=== PATIENT | female | born 1960 | race Caucasian/White ===

== ENCOUNTER 2017-07-02 15:30 | Outpatient (RCR) | payer BC | END 2017-09-16 | LOC: MKS.ESL.PT | DX: G20 Parkinson's disease (principal); R26.89 Other abnormalities of gait and mobility ==

== ENCOUNTER 2020-03-02 02:46 | Inpatient (IN) | payer MEDICARE ==
[~2020-03-02] VITALS: Ht 160 cm; Wt 97.6 kg
[2020-03-02] VITALS (346 sets, daily range): BP systolic 90–135; BP diastolic 54–109; PULSE 103–129; TEMP 97.5–99.2; O2SAT 82–100
--- NOTE | 2020-03-02 03:30 | NUR ---
patient arrived via EMS on a stretcher from [facility]. report had not been given at this time by the RN from [facility]. Patient is on room air, in no acute distress, vitals stable. Provider, Katty VIRK, at bedside. Patient has IVF's running and a braun that was placed at OSH. Waiting for orders and will CTM patient.
[2020-03-02] MEDS ORDERED: WELLBUTRIN XL300 M1 PO (03:42)
[2020-03-02] MEDS ORDERED: REQUIP XL8 MG PO (03:42)
[2020-03-02] MEDS ORDERED: PROTONIX 40MG T40 MG PO (03:43)
[2020-03-02] MEDS ORDERED: SYNTHROID0.05 MG/TA PO (03:43)
[2020-03-02] MEDS ORDERED: VITAMIND3 5000 PO (03:44)
[2020-03-02] MEDS ORDERED: ABILIFY20 MG PO (03:44)
[2020-03-02] MEDS ORDERED: PROZAC40 MG PO (03:45)
[2020-03-02] MEDS ORDERED: XANAX 0.5MG0.5 MG PO (03:45)
[2020-03-02 04:13] LABS: HEMOGLOBIN 7.2 g/dl (12.5-16.0)
--- NOTE | 2020-03-02 04:27 | NUR ---
Called [facility] and spoke to the nurse who took care of patient. Recieved a good report and reminded nurse that in the future report needs to be given to us before the patient leaves their facility. She said she called six times and I told her I was in an isolation room doing a sterile dressing change and she could have waited and that it is unacceptable and not safe practice to just send a patient without giving someone report first. That was the end of our conversation.
[2020-03-02 04:37] LABS: CALCIUM 7.8 mg/dL (8.4-10.2); CREATININE, serum 1.05 (0.52-1.25); POTASSIUM 4.5 mmol/L (3.4-5.0)
[2020-03-02 06:08] LABS: TRICYCLIC ANTIDEPRESS URINE NEGATIVE
--- NOTE | 2020-03-02 06:40 | NUR ---
Spoke to patients daughter, Chastity. She had some questions so she was updated on her mothers plan of care. I told her she will be updated as soon as we know more.
--- NOTE | 2020-03-02 06:51 | NUR ---
returned my call regarding the GI consult on the patient. He was updated about the patients status and he told me that either him or will be by later to scope the patient and will call us back with a time.
--- NOTE | 2020-03-02 09:35 | NUR ---
CARLA met with the patient to discuss discharge plan. The patient lives in [place] with her (Ryne, ph#[phone]), daughter (Chastity [place]rieta, ph#[phone]) and Chastity's three children. She reports independence with ADLs and does not have any DME. The patient's PCP is Dr. Mynor Brothers and she receives her medications at [facility]. She reports occasional difficulties affording her meds. The patient does not have advanced directives in EMR, but she reports that she does have them completed and at home. She states that her is her DPOA-HC. The patient plans to return home with her family upon discharge. SW contacted and updated the patient's . The patient's confirmed the above information. He had no other questions or concerns for SW at this time. The patient had a positive UDS for amphetamines/methamphetamines. CARLA discussed this with the patient. 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 She reports that she uses the meth in her home. She states that the children are not home when she uses it. She states that on scale from 1-10, that she is at a 10 on wanting to quit. CARLA discussed NA meetings and outpatient treatment. The patient was not interested in either. She states that she has no problems quitting. CARLA made a CPS report. Intake ID#[id number]. The patient was currently on 2 liters of oxygen. SW to continue to monitor.
--- NOTE | 2020-03-02 11:00 | NUR ---
Pt has returned to unit from Endoscopy procedure. Pt ambulated with 1 assist, steady gait from cart to bed. Physical Therapy in room with pt now for mobility evaluation. Alberts draining clear yellow urine, yet pt complaining of need to urinate and requsting removal of catheter Pt orientedx4, Juan Carlos=10, VSS on room air, no pain other than aforementioned Call light in reach after Physical Therapy evaluation Pt tolerating clear liquids without N/V
--- NOTE | 2020-03-02 13:22 | NUR ---
Lab called regarding continued pending CBC - first tectonophysicist unable to obtain blood sample, different tectonophysicist to be dispatched now
[2020-03-02 14:04] LABS: MEAN CELL VOLUME 81 fl (80.0-100.0); MEAN CORPUSCULAR HGB CONC 30 g/dl (33.0-37.0); MEAN PLATELET VOLUME 11.1 fl (7.4-10.4); PLATELET COUNT 336 K/mm3 (130-400); RED BLOOD COUNT 3.07 M/mm3 (4.10-5.30); REDCELL DISTRIBUTION WIDTH-CV 18.2 % (11.5-14.5)
[2020-03-02 14:07] LABS: HEMATOCRIT 24.8 % (37.0-47.0); HEMOGLOBIN 7.5 g/dl (12.5-16.0); MEAN CORPUSCULAR HEMOGLOBIN 24 pg (27.0-31.0)
[2020-03-02 14:54] LABS: ANISOCYTOSIS 3+; EOSINOPHIL 1 % (0-4); LYMPHOCYTE 25 % (20.0-51.0); MYELOCYTE 1 % (0-0); NEUTROPHILS 69 % (42.0-75.2); PLATELET ESTIMATE NORMAL (NORMAL)
[2020-03-02 14:55] LABS: HYPOCHROMIA 2+; OVALOCYTES 1+; POIKILOCYTOSIS 1+
--- NOTE | 2020-03-02 15:00 | NUR ---
Daughter Chastity called in for update. Update given and informed if H&H improved, MD Gricelda thinking of discharging pt home. Pt does state she has extensive support team made up of:, daughter and mother... but would feel more comfortable staying one more night since "she passed out and her blood pressure was so low last night". Daughter in agreement and asking if pt can stay tonight. MD Gricelda informed and OK with 1 more evening d/t mild orthostatic dizzyness, continued tachycardia and hemoglobin<8
--- NOTE | 2020-03-02 17:50 | NUR ---
Pt arrives to medical unit rm [id number] from ICU via WC accompanied by MAME Espinal. Pt ambulates with steady gait from WC to chair, denies pain or needs at this time, requesting shower later before bedtime. POC reviewed with pt. Water and sprite provided. Call light in reach.
--- NOTE | 2020-03-02 18:55 | NUR ---
Pt report received from Jocelynn VILCHIS at bedside. Pt is resting in bed peacefully watching tv with no complaints at this time. Call light is at her side. Will continue to monitor.
--- NOTE | 2020-03-02 21:24 | NUR ---
This underwriter solicitation director was approached from RT asking if Pt has been in the 80's for SP02 this shift. This underwriter solicitation director double checked VS rpeort which shows PT O2>90% on RA this shift. This underwriter solicitation director double checked Pt SP02 and is noted to be 88%-91%% RA. RT states that they are putting Pt on 2l 02 per NC for NOC. soldering technician also reported that Pt H&H recheck was unable to be completed due to inability to obtain blood return. Pt has NS running iv at 125ml/hr and bottle label inspector states he will re-attempt during the NOC. Will continue to monitor.
--- NOTE | 2020-03-02 23:28 | NUR ---
Pt was a difficult stick for laborer prestressed concrete and so this investment underwriter assisted by holding Pt's right hand and keeping skin tight. Lab was successfully obtained on first stick. Will continue to monitor.
[2020-03-02 23:51] LABS: HEMATOCRIT 21.3 % (37.0-47.0); HEMOGLOBIN 6.6 g/dl (12.5-16.0)
[2020-03-03] VITALS (20 sets, daily range): BP systolic 92–113; BP diastolic 44–69; PULSE 91–106; TEMP 98–99.8
--- NOTE | 2020-03-03 03:36 | NUR ---
Pt has had blood transfusing without complications since 129. Pt is tolerating transfusion well with no s/s of adverse reactions reported or noted. Call light is within reach and Pt is noted to be resting with eyes closed and breathing in a regular rate and pattern at times. Will continue to monitor.
--- NOTE | 2020-03-03 04:26 | NUR ---
After disconnecting blood tubing from Pt and making rounds this telegraphic typewriter operator was approached from TUCK POINTER HELPER stating that Pt was "covered with blood". This telegraphic typewriter operator assess Pt and notices that her right AC IV is no longer inserted into Pt's AC. Right AC IV discontinued.
[2020-03-03 04:35] LABS: COLLECTION METHOD CLEAN CATCH
[2020-03-03 05:07] LABS: PH 6 (5-8); SQUAMOUS EPITHELIAL 0-2 /hpf; URINE APPEARANCE Clear; URINE BACTERIA None Seen /hpf; URINE BILIRUBIN Negative (NEGATIVE); URINE BLOOD Negative (NEGATIVE); URINE COLOR Yellow; URINE GLUCOSE Negative (NEGATIVE); URINE KETONE Negative (NEGATIVE); URINE LEUKOCYTE ESTERASE 1+ (NEGATIVE); URINE NITRATE Negative (NEGATIVE); URINE PROTEIN(semi-quant) Negative (NEGATIVE); URINE RBC 0-2 /hpf; URINE UROBILINOGEN Negative (NEGATIVE)
--- NOTE | 2020-03-03 06:04 | NUR ---
Pt is noted to be resting in bed with eyes closed when laborer plumbing enters room and is easily aroused. Pt remains in stable condition at this time with no s/s of distress noted. Call light is within reach. Will continue to monitor.
[2020-03-03 07:12] LABS: BASO # 0.1 (0.0-0.2); BASO % 0.5 % (0.0-2.0); EOS # 0.1 (0.0-0.7); EOS % 1.4 % (0-4.0); GRAN # 4.9 (1.4-6.5); GRAN % 51.4 % (42.2-75.2); LYMPH # 3.8 (1.2-3.4); LYMPH % 39.9 % (20.0-51.0); MEAN CELL VOLUME 82 fl (80.0-100.0); MEAN CORPUSCULAR HGB CONC 31 g/dl (33.0-37.0); MEAN PLATELET VOLUME 11.3 fl (7.4-10.4); MONO # 0.6 (0.1-0.6); RED BLOOD COUNT 2.69 M/mm3 (4.10-5.30); REDCELL DISTRIBUTION WIDTH-CV 18.1 % (11.5-14.5)
[2020-03-03 07:22] LABS: HEMATOCRIT 22.1 % (37.0-47.0); HEMOGLOBIN 6.8 g/dl (12.5-16.0); MEAN CORPUSCULAR HEMOGLOBIN 25 pg (27.0-31.0); PLATELET COUNT 234 K/mm3 (130-400)
--- NOTE | 2020-03-03 08:44 | NUR ---
TRINI NOTE: PT AOX4. DENIES PAIN, CP, SOB, N/V, VERTIGO. STEADY INDEPENDENT GAIT. TOLERATING BREAKFAST. HGB 6.[address] GALO NOTIFIED. REPORTS DIARRHEA OVERNIGHT THUS MIRALAX NOT GIVEN THIS AM. DENIES ABD CRAMPING
--- NOTE | 2020-03-03 14:48 | NUR ---
BLOOD TRANSFUSION COMPLETE @ 1440. ORDER FOR H&H RECHECK POST 4HRS @ 1840 PER CONVERSATION WITH PA. PT DENIES ANY REACTION SYMPTOMS.
--- NOTE | 2020-03-03 20:09 | NUR ---
At time of assessment, patient is resting in bed. She states she has felt very tired today. She is currently on 1 L O2, no shortness of breath at rest, lung sounds are clear, heart sounds are regular and normal. No edema or pain is present. She is alert and oriented. Will continue to monitor.
[2020-03-03 21:26] LABS: HEMATOCRIT 25.2 % (37.0-47.0); HEMOGLOBIN 7.9 g/dl (12.5-16.0)
--- NOTE | 2020-03-04 01:10 | NUR ---
At this time, patient complains of nausea. Dr. Jade is notified and initiates Zofran 4mg Q6 PRN. Patient is not experiencing any other symptoms. Zofran administered and will continue to monitor.
[2020-03-04 04:35] VITALS: BP 89/52; PULSE 92; TEMP 99
--- NOTE | 2020-03-04 05:23 | NUR ---
Patient has slept for most of the night. She did wake up once around 0130 complaining of nausea, which Zofran was administered for. Otherwise, she has had an uneventful night. She still wears oxygen at 1 liter and is tolerating well. She has not complained of any pain. Will continue to monitor.
[2020-03-04 06:18] LABS: BASO % 0.3 % (0.0-2.0); EOS # 0.1 (0.0-0.7); EOS % 1.6 % (0-4.0); GRAN # 4.5 (1.4-6.5); GRAN % 56.4 % (42.2-75.2); LYMPH # 2.7 (1.2-3.4); LYMPH % 33.9 % (20.0-51.0); MEAN CELL VOLUME 81 fl (80.0-100.0); MEAN CORPUSCULAR HGB CONC 32 g/dl (33.0-37.0); MEAN PLATELET VOLUME 10.6 fl (7.4-10.4); MONO # 0.5 (0.1-0.6); MONO % 6.8 % (1.7-9.3); PLATELET COUNT 210 K/mm3 (130-400); REDCELL DISTRIBUTION WIDTH-CV 18.3 % (11.5-14.5)
[2020-03-04 06:24] LABS: HEMATOCRIT 24.3 % (37.0-47.0); HEMOGLOBIN 7.7 g/dl (12.5-16.0); MEAN CORPUSCULAR HEMOGLOBIN 26 pg (27.0-31.0)
[2020-03-04 06:28] LABS: CALCIUM 7.8 mg/dL (8.4-10.2); CREATININE, serum 0.95 (0.52-1.25); POTASSIUM 3.8 mmol/L (3.4-5.0)
--- NOTE | 2020-03-04 08:01 | NUR ---
Rcvd report from MAME Whiteside. Pt is awake and up to the restroom upon entering for bedside report. Pt does have and open wound to the lower abdomen that is beginning to drain yellow fluid. Placed nonadherent pad over and covered with tape d/t pt wearing brief and rubbing of that area. Pt is A&O, independent in the room. Has no c/o pain or discomfort at this time. Assessment completed, no further concerns at this time. Call light within reach.
[2020-03-04 08:05] VITALS: BP 96/48; PULSE 100; TEMP 99.2
[2020-03-04] MEDS ORDERED: BIAXIN 500MG T500 MG PO (09:59)
[2020-03-04] MEDS ORDERED: PROTONIX 40MG T40 MG PO (09:59)
[2020-03-04] MEDS ORDERED: AMOXICILLIN 50500 MG PO (09:59)
[2020-03-04] MEDS ORDERED: FERRO-TIME325 MG PO (09:59)
--- NOTE | 2020-03-04 17:55 | NUR ---
PT DISCHARGED FROM HOSPITAL AT 1220 WITH ANTIBIOTICS FOR THIS EVENING PERMISSION GIVEN FROM SHAMIKA HAMILTON. PT ESCORTED OUT BY THIS RN.
== END 2020-03-04 12:20 | disposition home or self-care (01) | DRG 378 ==
LOC: IMCU 02:46 → ICU 04:04 → MEDICAL 18:15 → ICU 18:15 → MEDICAL 03-04 12:20
PROVIDERS: Internal Medicine; Internal Medicine Gastroenterology; Nurse Practitioner Family; Physician Assistant; ADMIT Student in an Organized Health Care Education/Training Program
PROC: 0DB68ZX Excision of Stomach, Via Natural or Artificial Opening Endoscopic, Diagnostic (ICD-10-PCS; 2020-03-02)
PROC: 0DB98ZX Excision of Duodenum, Via Natural or Artificial Opening Endoscopic, Diagnostic (ICD-10-PCS; principal; 2020-03-02 10:00)
DX: K25.4 Chronic or unspecified gastric ulcer with hemorrhage (principal); R65.10 Systemic inflammatory response syndrome (SIRS) of non-infectious origin without acute organ dysfunction; E87.2 Acidosis; T81.89XA Other complications of procedures, not elsewhere classified, initial encounter; D50.0 Iron deficiency anemia secondary to blood loss (chronic); G20 Parkinson's disease; E03.9 Hypothyroidism, unspecified; F41.8 Other specified anxiety disorders; K21.9 Gastro-esophageal reflux disease without esophagitis; F15.90 Other stimulant use, unspecified, uncomplicated; K44.9 Diaphragmatic hernia without obstruction or gangrene; E07.9 Disorder of thyroid, unspecified; B96.81 Helicobacter pylori [H. pylori] as the cause of diseases classified elsewhere
CPT/HCPCS: 99223-AI; 99239; C9113; J2250; J2370; J2405; J2704; J7030; P9016

== ENCOUNTER 2020-04-14 20:52 | Inpatient (IN) | payer MEDICARE ==
[2020-04-14] VITALS (16 sets, daily range): BP systolic 112; BP diastolic 64; O2SAT 95–96
[~2020-04-14] VITALS: Ht 160 cm; Wt 98.7 kg
[~2020-04-14 20:52] MED LIST: ABILIFY20 MG PO; AMOXICILLIN 50500 MG PO; BIAXIN 500MG T500 MG PO; FERRO-TIME325 MG PO; PROTONIX 40MG T40 MG PO; PROZAC40 MG PO; REQUIP XL8 MG PO; SYNTHROID0.05 MG/TA PO; VITAMIND3 5000 PO; WELLBUTRIN XL300 M1 PO; XANAX 1MG1 MG PO
[2020-04-14 22:25] LABS: MEAN CELL VOLUME 83 fl (80.0-100.0); MEAN CORPUSCULAR HGB CONC 29 g/dl (33.0-37.0); MEAN PLATELET VOLUME 10.8 fl (7.4-10.4); PLATELET COUNT 532 K/mm3 (130-400); REDCELL DISTRIBUTION WIDTH-CV 17.1 % (11.5-14.5)
[2020-04-14 22:29] LABS: HEMATOCRIT 23.2 % (37.0-47.0); HEMOGLOBIN 6.7 g/dl (12.5-16.0); MEAN CORPUSCULAR HEMOGLOBIN 24 pg (27.0-31.0)
[2020-04-14 22:36] LABS: CALCIUM 7.6 mg/dL (8.4-10.2); CREATININE, serum 1.1 (0.52-1.25)
[2020-04-14 23:45] LABS: ANISOCYTOSIS 1+; HYPOCHROMIA 1+; LYMPHOCYTE 13 % (20.0-51.0); NEUTROPHILS 84 % (42.0-75.2); PLATELET ESTIMATE INCREASED (NORMAL)
[2020-04-15] VITALS (893 sets, daily range): BP systolic 91–122; BP diastolic 41–91; PULSE 92–132; TEMP 97.7–99.2; O2SAT 68–100
[2020-04-15 01:13] LABS: MUCOUS Present /lpf; PH 5 (5-8); SQUAMOUS EPITHELIAL 0-2 /hpf; URINE APPEARANCE Clear; URINE BACTERIA None Seen /hpf; URINE BILIRUBIN Negative (NEGATIVE); URINE BLOOD Negative (NEGATIVE); URINE COLOR Straw; URINE GLUCOSE Negative (NEGATIVE); URINE KETONE Negative (NEGATIVE); URINE LEUKOCYTE ESTERASE Negative (NEGATIVE); URINE NITRATE Negative (NEGATIVE); URINE PROTEIN(semi-quant) Negative (NEGATIVE); URINE RBC None Seen /hpf; URINE UROBILINOGEN Negative (NEGATIVE)
[2020-04-15 01:16] LABS: COLLECTION METHOD CLEAN CATCH
[2020-04-15 01:18] LABS: TRICYCLIC ANTIDEPRESS URINE NEGATIVE
--- NOTE | 2020-04-15 07:00 | NUR ---
Pt report provided to Linsey VILCHIS. Pt resting in bed at this time. Assessment completed with oncoming nurse about abdominal wounds.
[2020-04-15 07:28] LABS: MEAN CELL VOLUME 84 fl (80.0-100.0); MEAN CORPUSCULAR HGB CONC 32 g/dl (33.0-37.0); MEAN PLATELET VOLUME 10.7 fl (7.4-10.4); PLATELET COUNT 446 K/mm3 (130-400); RED BLOOD COUNT 2.67 M/mm3 (4.10-5.30); REDCELL DISTRIBUTION WIDTH-CV 18.6 % (11.5-14.5)
[2020-04-15 07:30] LABS: HEMATOCRIT 22.3 % (37.0-47.0); HEMOGLOBIN 7.1 g/dl (12.5-16.0); MEAN CORPUSCULAR HEMOGLOBIN 27 pg (27.0-31.0)
[2020-04-15 07:31] LABS: CALCIUM 7.3 mg/dL (8.4-10.2); CREATININE, serum 1.02 (0.52-1.25); POTASSIUM 4.1 mmol/L (3.4-5.0)
--- NOTE | 2020-04-15 08:10 | NUR ---
Pt assessment complete. Pt is laying in bed sleeping upon entry, she arouses to voice. Pt currently denies any pain. She reports that she has some dizziness and SOB with exertion, but improved from admission. Pt has no N/V at this time. IVF infusing without complications. POC discussed with patient who verbalizes understanding. Denies any needs at this time. Call light within reach. Will continue to monitor.
[2020-04-15 09:22] LABS: BAND 6 % (0-10); BASOPHIL 1 % (0-2); EOSINOPHIL 1 % (0-4); MYELOCYTE 2 % (0-0); NEUTROPHILS 66 % (42.0-75.2)
[2020-04-15 09:27] LABS: LYMPHOCYTE 20 % (20.0-51.0)
[2020-04-15 09:30] LABS: ANISOCYTOSIS 1+; HYPOCHROMIA 1+; OVALOCYTES 1+; PLATELET ESTIMATE INCREASED (NORMAL)
--- NOTE | 2020-04-15 17:55 | NUR ---
Pt moved to room 329 at this time.
[2020-04-15 19:16] LABS: HEMATOCRIT 19.4 % (37.0-47.0); HEMOGLOBIN 6.1 g/dl (12.5-16.0)
--- NOTE | 2020-04-15 22:35 | NUR ---
ONE UNIT PRBCs STARTED FOR A HGB OF 6.1.
--- NOTE | 2020-04-15 22:45 | NUR ---
NO ADVERSE EFFECTS NOTED AFTER STARTING BLOOD TRANSFUSION.
[2020-04-16] VITALS (12 sets, daily range): BP systolic 90–135; BP diastolic 45–77; PULSE 63–108; TEMP 97.8–98.5
--- NOTE | 2020-04-16 00:30 | NUR ---
BLOOD TRANSFUSION COMPLETE WITH NO ADVERSE EFFECTS.
[2020-04-16 01:59] LABS: HEMATOCRIT 21.2 % (37.0-47.0); HEMOGLOBIN 6.6 g/dl (12.5-16.0)
--- NOTE | 2020-04-16 02:25 | NUR ---
F/U HGB AFTER BLOOD TRANSFUSION WAS 6.6. ANOTHER UNIT ORDERED BY HOSPITALIST [place]
--- NOTE | 2020-04-16 03:45 | NUR ---
2nd UNIT PRBCs STARTED. NO ADVERSE EFFECTS NOTED. CONT. TO MONITOR.
--- NOTE | 2020-04-16 04:00 | NUR ---
TRANSFUSION CONTINUES WITHOUT PROBLEM. CONT. TO MONITOR.
--- NOTE | 2020-04-16 05:10 | NUR ---
TRANSFUSION COMPLETE. NO ADVERSE EFFECTS. CBC ORDERED FOR THIS A.M.
--- NOTE | 2020-04-16 08:00 | NUR ---
Assessment complete. Patient A&Ox4. Denies pain and discomfort. VSS. IV CDI, fluids infusing. Patient states that she feels better after getting her blood transfusion. Patient is steady on her feet. Nurse instructed patient to call for assistance with ambulation. Patient verbalized an understanding. No further needs expressed from patient. Contact precations in place. Call light within reach
[2020-04-16 08:04] LABS: MEAN CELL VOLUME 86 fl (80.0-100.0); MEAN CORPUSCULAR HGB CONC 31 g/dl (33.0-37.0); MEAN PLATELET VOLUME 10.5 fl (7.4-10.4); RED BLOOD COUNT 2.77 M/mm3 (4.10-5.30); REDCELL DISTRIBUTION WIDTH-CV 17.7 % (11.5-14.5)
[2020-04-16 08:18] LABS: CALCIUM 7.6 mg/dL (8.4-10.2); CREATININE, serum 1.02 (0.52-1.25); MAGNESIUM 1.9 mg/dL (1.6-2.3); POTASSIUM 3.9 mmol/L (3.4-5.0)
[2020-04-16 08:23] LABS: HEMATOCRIT 23.9 % (37.0-47.0); HEMOGLOBIN 7.4 g/dl (12.5-16.0); MEAN CORPUSCULAR HEMOGLOBIN 27 pg (27.0-31.0); PLATELET COUNT 281 K/mm3 (130-400)
[2020-04-16 09:52] LABS: BAND 2 % (0-10); EOSINOPHIL 3 % (0-4); LYMPHOCYTE 33 % (20.0-51.0); NEUTROPHILS 59 % (42.0-75.2); NUCLEATED RED BLOOD CELL 1 (0-6); PLATELET ESTIMATE NORMAL (NORMAL)
[2020-04-16 09:53] LABS: ANISOCYTOSIS 2+; HYPOCHROMIA 2+; POLYCHROMASIA 1+
[2020-04-16 16:26] LABS: HEMOGLOBIN 7.8 g/dl (12.5-16.0)
--- NOTE | 2020-04-16 17:54 | NUR ---
Patient has been resting in bed most of the shift. Has felt better after blood transfusions from second shift supervisor. VSS. A&Ox3.IV CDI. Hgb stable. No further needs expressed from patient. Call light within reach
[2020-04-17 01:11] VITALS: BP 79/48; PULSE 85; TEMP 98.2
[2020-04-17 04:06] VITALS: BP 120/53; PULSE 86; TEMP 98.6
--- NOTE | 2020-04-17 06:10 | NUR ---
Patient rested well overnight. Patient remains alert and oriented while awake, rouses easily. Patient denies pain or needs, call light within reach.
[2020-04-17 07:08] LABS: MEAN CELL VOLUME 87 fl (80.0-100.0); MEAN CORPUSCULAR HGB CONC 31 g/dl (33.0-37.0); MEAN PLATELET VOLUME 10.7 fl (7.4-10.4); PLATELET COUNT 281 K/mm3 (130-400); RED BLOOD COUNT 2.77 M/mm3 (4.10-5.30); REDCELL DISTRIBUTION WIDTH-CV 18.5 % (11.5-14.5)
[2020-04-17 07:17] LABS: POTASSIUM 3.8 mmol/L (3.4-5.0)
[2020-04-17 07:28] LABS: HEMATOCRIT 24.2 % (37.0-47.0); HEMOGLOBIN 7.4 g/dl (12.5-16.0); MEAN CORPUSCULAR HEMOGLOBIN 27 pg (27.0-31.0)
[2020-04-17 08:16] LABS: BAND 2 % (0-10); LYMPHOCYTE 39 % (20.0-51.0); NEUTROPHILS 56 % (42.0-75.2)
[2020-04-17 08:17] LABS: ANISOCYTOSIS 1+; PLATELET ESTIMATE NORMAL (NORMAL)
[2020-04-17 08:20] VITALS: BP 98/50; PULSE 87; TEMP 98.4
[2020-04-17 08:39] LABS: PATHOLOGY DIFF REVIEW OK +
--- NOTE | 2020-04-17 09:30 | NUR ---
Patient has been doing well today. She stated she is feeling very tired today. Her HBG is still low today. Patient is aware. Patient denies pain and nausea. Offered to help her in the shower, she wanted to wait until she's at home. No other changes at this time. Patient should discharge today.
[2020-04-17 11:36] VITALS: BP 110/65; PULSE 94; TEMP 98.4
--- NOTE | 2020-04-17 15:30 | NUR ---
Patient is discharging home. Discharge instructions discussed with patient. No questions verbalized. INT discontinued. Explained when her follow up appointment is. Copies of discharge instructions sent with patient. All belongings packed up by patient. Patient walked out via wheel chair by Rose ROSALES.
--- NOTE | 2020-04-17 16:45 | NUR ---
Medical Claims Examiner met with patient at her door to discuss discharge planning. Patient lives in [place] with her , Ryne (ph#[phone]). Patient sees Dr. Brothers for primary care and obtains medications from [place] [facility]. Patient does not use any DME and reports independence with ADLS. Patient reports her DP- designates Ryne and her daughter, Chastity (ph#[phone]). Patient plans to return home upon discharge. No needs at this time.
== END 2020-04-17 15:30 | disposition home or self-care (01) | DRG 378 ==
LOC: ICU 20:52 → JCC 21:00 → IMCU 21:00 → JCC 04-15 17:47
PROVIDERS: Internal Medicine; Physician Assistant; ADMIT Student in an Organized Health Care Education/Training Program
DX: K25.4 Chronic or unspecified gastric ulcer with hemorrhage (principal); N17.9 Acute kidney failure, unspecified; E87.2 Acidosis; K21.9 Gastro-esophageal reflux disease without esophagitis; F32.9 Major depressive disorder, single episode, unspecified; F41.9 Anxiety disorder, unspecified; D64.9 Anemia, unspecified; E03.9 Hypothyroidism, unspecified; G20 Parkinson's disease; D72.829 Elevated white blood cell count, unspecified; D47.3 Essential (hemorrhagic) thrombocythemia; E87.5 Hyperkalemia; E86.1 Hypovolemia; I95.9 Hypotension, unspecified; R10.13 Epigastric pain; K44.9 Diaphragmatic hernia without obstruction or gangrene; F15.10 Other stimulant abuse, uncomplicated; R55 Syncope and collapse; Z90.710 Acquired absence of both cervix and uterus
CPT/HCPCS: 99223-AI; 99231-AI; 99233-AI; 99239; C9113; J2405; J7030; P9016

== ENCOUNTER → 2020-05-14 | Outpatient (CLI) | payer MEDICARE ==
[2020-05-14 16:20] LABS: HEMATOCRIT 40.1 % (37.0-47.0); HEMOGLOBIN 11.9 g/dl (12.5-16.0); MEAN CELL VOLUME 87 fl (80.0-100.0); MEAN CORPUSCULAR HEMOGLOBIN 26 pg (27.0-31.0); MEAN CORPUSCULAR HGB CONC 30 g/dl (33.0-37.0); MEAN PLATELET VOLUME 10.8 fl (7.4-10.4); PLATELET COUNT 328 K/mm3 (130-400); RED BLOOD COUNT 4.62 M/mm3 (4.10-5.30); REDCELL DISTRIBUTION WIDTH-CV 18.8 % (11.5-14.5)
[2020-05-14 16:29] LABS: TRICYCLIC ANTIDEPRESS URINE NEGATIVE
[2020-05-14 16:31] LABS: ALBUMIN 4.2 gm/dL (3.5-5.0); BILIRUBIN,TOTAL 0.4 mg/dL (0.0-1.0); CALCIUM 8.8 mg/dL (8.4-10.2); CREATININE, serum 1.13 (0.52-1.25); POTASSIUM 4.1 mmol/L (3.4-5.0); TOTAL PROTEIN 8.1 gm/dL (6.4-8.2)
== END ==
LOC: ZCOL.LAB 14:48 → COL.LAB 14:48
PROVIDERS: Surgery
DX: Z01.818 Encounter for other preprocedural examination (principal); F11.20 Opioid dependence, uncomplicated

== ENCOUNTER 2020-05-16 09:28 | Inpatient (IN) | payer MEDICARE, OTHER ==
[2020-05-16] VITALS (9 sets, daily range): BP systolic 103–135; BP diastolic 57–93; PULSE 92–100; TEMP 97.7
[~2020-05-16] VITALS: Ht 160 cm; Wt 97.5 kg
[2020-05-16] MEDS ORDERED: PROTONIX 40MG T40 MG PO (10:05)
[2020-05-16] MEDS ORDERED: FERRO-TIME325 MG PO (10:05)
--- NOTE | 2020-05-16 14:45 | NUR ---
Patient arrived to floor from PACU via bed. Patient is sleepy but alert and oriented. Post op checks initated. Patient arrived to floor on 4L of oxygen via NC. Patient's lungs sound wet and course. This is not reported to be her baseline. Patient states her pain is controlled at this time, denies further needs, call light within reach.
--- NOTE | 2020-05-16 18:06 | NUR ---
Patient resting in bed at this time. Patient was up to recliner for about half an hour this evening. Patient c/o pain in her left shoulder that she rates 8/10. Discussed gas pain as a result of robotic surgery, educated patient that narcotics will not relieve this pain. Encouraged patient to chew gum and ambulate, patient states she can't. Denies further needs at this time, call light within reach.
--- NOTE | 2020-05-16 19:50 | NUR ---
Received report from MAME Jones. Pt is currently in bed. Pt requested assistance with ambulating to the restroom. Pt was assisted to restroom at this time. Pt is currently in restroom. MAME Jones is currently in with her at this time. Nurse did report that pt lungs did sound wet to her during her assessment.
--- NOTE | 2020-05-16 20:30 | NUR ---
During pt assessment pt appear to be having difficulty breathing. Pt lung sounds did have some wheezing. Pt stated that she was having a little difficulty breathing. I asked her if she has ever had these problems before and she stated that she has not but remembered having a treatment after surgery. Dr. Morejon was contacted at this time. He was ok with getting RT involved to see if she needs a treatment. Treatment was ordered at this time. Rt has been contacted and they are on there way up. Pt has her call light within reach and her bed is in lowest position. Pt has been tolerating her full liquid diet well. She was informed that I would return to [facility] check to see how her breathing is after treatment.
--- NOTE | 2020-05-16 21:33 | NUR ---
RN CALLED FOR A PRN TX PATIENT WAS HAVING A DIFFICULT TIME CATHCHING THEIR BREATH. HEARD UPPER AIRWAY WHEEZES AND LIGHT RHONCI IN UPPER LOBES. PT FELT A LITTLE BETTER AFTER TX. ALSO SAYS THEY WOULD BE ABLE TO COUGH IT UP IF THEIR STOMACH WAS IN SUCH PAIN. RN WAS THEN NOTIFIED.
--- NOTE | 2020-05-16 23:10 | NUR ---
After going back in to pt room, pt wheezing could be heard from the door. RT is in the room at this time. Pt wheezing is lounder. Pt stated that she does not feel like she is having difficulty breathing at this time. She stated that she feels like it sounds worst than it actually feels. Dr. Morejon was contacted again and he just wanted her to be monitored throughout the night. He stated that as long as she isn't stating that she is having difficulty breathing and her vitals are within normal limitis that as long as she is monitored this is fine. He stated this if probably from surgery today. Pt has her call light within reach and stated that she would call if she needed something.
--- NOTE | 2020-05-16 23:29 | NUR ---
AT 11:00 RN CALLED WITH CONCERNS FOR BREATHING SOUNDS COMING FROM PATIENT. WHEN LISTENING TO PATIENT I FOUND HER TO HAVE UPPER TRACHEAL WHEEZES. BREATHES SOUNDS IN UPPER AND LOWER LOBES WERE CLEAR. I PLACED PATIENT ON COOL AEROSOL MIST TO HELP RELIEVE TRACHEAL WHEEZES. RN WAS NOTIFIED AND PATIENT SAYS THEY FEEL BETTER. WILL CONTINUE TO MONITOR.
[2020-05-17] VITALS (7 sets, daily range): BP systolic 105–125; BP diastolic 52–67; PULSE 91–117; TEMP 97.4–98.5
--- NOTE | 2020-05-17 02:24 | NUR ---
Pt requested something for pain. Pt was given [place] at this time for pain. Pt has her call light within reach. She was also given pudding at this time.
--- NOTE | 2020-05-17 04:43 | NUR ---
Pt is tolerating fluids well. Pt has been disconinued from IV fluids. Pt breathing is better but she still has wheezing. Pt stated that she feels better. Head of bead is elevated at this time, pt stated it's comfortable and she doesn't cough when her head is elevated. Pt had requested something for pain. Pt was given pain mediation at this time. Pt has her call light within reach and her bed is in lowest position.
--- NOTE | 2020-05-17 07:44 | NUR ---
Reported off to MAME Matson. Pt is currently sitting up in bed. Pt requested something for pain at this time. Pt was given pain medication at this time. Pt has her call light within reach. Her breathing is much better this morning.
--- NOTE | 2020-05-17 08:49 | NUR ---
Lying in bed with eyes closed. When patient is sleeping she has a hoarse sound that comes from her throat. Patient has vant mask on at 9L. Patient awakens when name is called out. Rating pain 7/10 in abd and feels that the pain medication helps some. Denies passing any gas. Voiding without difficulty. Lap sites x6 with edges well approximated, no redness/swelling/ discharge. Patient does have an old scar on her mid abd that did not heal from a past procedure and it is scabbed over. Patient denies additional needs at this time.
--- NOTE | 2020-05-17 11:47 | NUR ---
The patient in is on contact precautions. CARLA contacted the patient via cellular phone to complete initial intake. The patient lives in [place] with her , their daughter and three grandchildren. The patient denies DME use and is independent with ADLs. The patient's PCP is Dr. Brothers and patient receives medications from [place] [facility]. The patient may need some assistance paying for medications. She does not get paid until the end of the month. The patient will discharge to her mother's house and will stay there for a couple of weeks. The patient's will provide transportation. The patient is currently on oxygen. Will continue to monitor. CARLA collaborated the above information with the patient's nurse.
--- NOTE | 2020-05-17 12:13 | NUR ---
Rating pain 9/10 in abd and would like pain medication. Patient asks if she is going to get IV pain meds. Explain that we are trying to do oral pain meds because when she goes home she will not get IV pain medication. Administered pain medication as prescribed. Patient denies additional needs.
--- NOTE | 2020-05-17 16:52 | NUR ---
Rates pain in abd 07/02 and would like pain medication. Administered pain medication as prescribed. Patient is now on oxygen via NC, says that she is breathing well. Patient says that she would feel more comfortable staying another night and will discuss this with Dr. Holland when he comes to see her. Denies needs at this time.
--- NOTE | 2020-05-17 18:09 | NUR ---
Rating pain 8/10 in abd and would like pain medication. Dilaudid administered as prescribed. Patient sitting up in bed watching TV. Denies any additional needs at this time.
--- NOTE | 2020-05-17 19:24 | NUR ---
PATIENT SLEEPING IN BED DURING CHANGE OF SHIFT REPORT FROM DAY SHIFT NURSEJULITO. DID NOT AWAKEN DURING REPORT.
--- NOTE | 2020-05-18 02:15 | NUR ---
PATIENT UP IN ROOM INDEPENDENTLY WITH NO REPORTED PROBLEMS OR CONCERNS. REPORTED HAVING PAIN, OBSERVED TOO SOON TO HAVE ORAL PAIN MEDS, SEE eMAR FOR IV PAIN MEDS GIVEN. REPORTS IS STARTING TO PASS SOME FLATUS. REPORT PAIN IS ACROSS UPPER ABD/DIAPHRAGM/CHEST AREA WITH DEEP BREATHING, OBSERVED BREATHING NONLABORED/EVEN. PATIENT DENIES ANY CONCERNS OR QUESTIONS AT THIS TIME.
[2020-05-18 04:04] VITALS: BP 120/53; PULSE 107; TEMP 98.4
--- NOTE | 2020-05-18 05:52 | NUR ---
REPORTS PASSING SMALL AMOUNT OF FLATUS THIS MORNING.
--- NOTE | 2020-05-18 07:04 | NUR ---
PATIENT RESTING IN BED DURING CHANGE OF SHIFT REPORT GIVEN TO DAY SHIFT NURSENAZANIN.
[2020-05-18 08:03] VITALS: BP 100/59; PULSE 100; TEMP 97.4
--- NOTE | 2020-05-18 10:00 | NUR ---
Patient alert and oriented, answers questions appropriately. See assessment. Abdomen soft, non tender, non distended. Bowel sounds active x4 quads. +Flatus. Abdominal lap sites with edges well approximated, no redness or drainage noted. C/o generalized pain /10. Requests additional food items. No other c/o at this time.
[2020-05-18 12:32] VITALS: BP 129/93; PULSE 108; TEMP 97.3
[2020-05-18] MEDS ORDERED: NORCO 325 MG-51 TAB PO (13:54)
[2020-05-18] MEDS ORDERED: ZOFRAN 4MG T4 MG/TAB PO (14:02)
--- NOTE | 2020-05-18 14:05 | NUR ---
Dr Holland here to see patient.
--- NOTE | 2020-05-18 17:20 | NUR ---
Discharge instructions reveiwed with patient, verbalized understanding. Discharged via wheelchair to auto/home with family at 1604.
== END 2020-05-18 16:04 | disposition home or self-care (01) | DRG 326 ==
LOC: SDCO 09:28 → SURG 14:55 → SDCO 05-17 14:57 → SURG 05-17 14:58
PROVIDERS: ADMIT Surgery
PROC: 0BUT4JZ Supplement Diaphragm with Synthetic Substitute, Percutaneous Endoscopic Approach (ICD-10-PCS; principal; 2020-05-17)
PROC: 0DQ44ZZ Repair Esophagogastric Junction, Percutaneous Endoscopic Approach (ICD-10-PCS; 2020-05-17)
PROC: 8E0W4CZ Robotic Assisted Procedure of Trunk Region, Percutaneous Endoscopic Approach (ICD-10-PCS; 2020-05-17)
DX: K44.9 Diaphragmatic hernia without obstruction or gangrene (principal); K25.4 Chronic or unspecified gastric ulcer with hemorrhage; K21.9 Gastro-esophageal reflux disease without esophagitis; D50.0 Iron deficiency anemia secondary to blood loss (chronic); E66.9 Obesity, unspecified; Z20.828 Contact with and (suspected) exposure to other viral communicable diseases; K25.7 Chronic gastric ulcer without hemorrhage or perforation; Z68.35 Body mass index [BMI] 35.0-35.9, adult
CPT/HCPCS: OP; C1781; J0690; J1170; J2370; J2405; J2704; J2710; J3010; J7120

== ENCOUNTER 2022-06-20 10:46 | Inpatient (IN) | payer MEDICARE, OTHER ==
[~2022-06-20] VITALS: Ht 160 cm; Wt 64.0 kg
[~2022-06-20 10:46] MED LIST changes: +NORCO 325 MG-51 TAB PO; +ZOFRAN 4MG T4 MG/TAB PO
--- NOTE | 2022-06-20 12:30 | NUR ---
Patient to room 317 from the ED. Trans[place] [facility] Patient ambulated independently to the bed. Nurse oriented the patient to location, bed and call light. Patient in bed, call light within reach.
[2022-06-20 14:23] VITALS: BP 96/81; PULSE 116
[2022-06-20 16:19] VITALS: BP 132/91; PULSE 118; TEMP 98
--- NOTE | 2022-06-20 17:20 | NUR ---
Patient sitting up in bed, compaints of pain in chest r/t coughing. A&Ox3. VSS. IV CDI. Independent in the room . Call light within reach
[2022-06-20 20:57] VITALS: BP 124/85; PULSE 115; TEMP 98
[2022-06-20 21:25] LABS: CALCIUM 8.8 mg/dL (8.4-10.2); CREATININE, serum 1.04 mg/dL (0.57-1.11); MAGNESIUM 1.9 mg/dL (1.6-2.6); PHOSPHOROUS 4.1 mg/dL (2.3-4.7); POTASSIUM 4.2 mmol/L (3.5-4.5)
[2022-06-20 21:31] LABS: TRICYCLIC ANTIDEPRESS URINE NEGATIVE
--- NOTE | 2022-06-20 22:24 | NUR ---
At 2039 telemetry called and stated patient had 6 beats of V-tach. BP 119/81, HR 117. Denies pain and discomfort except for shortness of breath. Called SULLY Alaniz. Requested that Cardiology by consulted and called. Called Dr. Draper. Updated on patient's echo from today, HR has been sinus tachycardia in the 110s, and had 6 beats of V-tach. New order for Toprolol, and given per orders. Katty also ordered labs. On lab results around 2129, BS was 55 and Mag 1.9. Updated Katty, new orders recieved, and hypoglyemia protocol started. Given glucose tablets. Recheck on BS was 90. Given snack as requested. Patient voices no questions, needs, or concerns at this time. In bed with call light within reach.
[2022-06-20 23:20] VITALS: BP 128/86; PULSE 103; TEMP 98
--- NOTE | 2022-06-20 23:43 | NUR ---
Patient reported feeling anxious due to shortness of breath/difficulty breathing. Oxyen 98-100% on room air. High respiratory rate, but then patient starts to close eyes and seems to fall asleep mid conversation. When awakens continues to state he is having difficulty breathing. Called and updated SULLY Alaniz. New order to give IV Lasix, and given per orders. Patient in bed with call light within reach.
[2022-06-21 04:39] VITALS: BP 115/79; PULSE 101; TEMP 97.8
--- NOTE | 2022-06-21 05:45 | NUR ---
Patient slept on and off during the night. Continues to have dry cough. Has SOB and dyspnea. SPO2 98-100%. On oxygen for comfort only. Having good urine output, see I&O. In bed with call light within reach. Bed alarm on.
[2022-06-21 06:21] LABS: BASO # 0.1 K/mm3 (0.0-0.2); BASO % 0.9 % (0.0-2.0); EOS # 0.1 K/mm3 (0.0-0.7); EOS % 0.9 % (0.0-4.0); GRAN # 7.9 K/mm3 (1.4-6.5); HEMATOCRIT 38.6 % (37.0-47.0); HEMOGLOBIN 12.3 g/dl (12.5-16.0); LYMPH # 3.7 K/mm3 (1.2-3.4); LYMPH % 29.1 % (20.0-51.0); MEAN CELL VOLUME 80 fl (80.0-100.0); MEAN CORPUSCULAR HEMOGLOBIN 26 pg (27-31); MEAN CORPUSCULAR HGB CONC 32 g/dl (33.0-37.0); MEAN PLATELET VOLUME 11.2 fl (7.4-10.4); MONO # 0.9 K/mm3 (0.1-0.6); MONO % 6.8 % (1.7-9.3); PLATELET COUNT 350 K/mm3 (130-400); REDCELL DISTRIBUTION WIDTH-CV 14.7 % (11.5-14.5)
[2022-06-21 06:40] LABS: ALBUMIN 3.3 gm/dL (3.4-4.8); BILIRUBIN,TOTAL 0.5 mg/dL (0.2-1.2); CALCIUM 8.6 mg/dL (8.4-10.2); CREATININE, serum 1.19 mg/dL (0.57-1.11); TOTAL PROTEIN 6.8 gm/dL (6.2-8.1)
[2022-06-21 08:13] VITALS: BP 123/79; PULSE 97; TEMP 97.5
--- NOTE | 2022-06-21 08:40 | NUR ---
PT RESTING IN BED. MORNING MEDICATIONS GIVEN. SHIFT ASSESSMENT COMPLETED. PT DENIES ANY PAIN OR NEEDS. ON 2L O2 VIA NC FOR COMFORT. PT REPORTS FEELING ANXIOUS. WILL CONTINUE TO MONITOR.
[2022-06-21 11:23] VITALS: BP 112/69; PULSE 91; TEMP 97.6
--- NOTE | 2022-06-21 11:42 | NUR ---
SW came to do intake, but pt was sleeping. Will return back later.
--- NOTE | 2022-06-21 11:53 | NUR ---
CARLA met with pt to complete intake. Pt lives in [place] with her Ryne @ [phone]. Pt reports she is independent on all ADLS and does not use any DME. Pt still drives. Pt PCP is Willy Cast and gets her medications from [facility]. Pt not interested in DPOA-HC at this time. No other needs stated at this time. DC: home w/.
[2022-06-21 15:54] VITALS: BP 105/76; PULSE 91; TEMP 97.3
[2022-06-21 20:06] VITALS: BP 121/82; PULSE 89; TEMP 97.3
[2022-06-21 23:38] VITALS: BP 109/72; PULSE 94; TEMP 98.5
--- NOTE | 2022-06-22 04:45 | NUR ---
ASSESSMENT COMPLETE FOR HEALTH AND WELLNESS DIRECTOR. PT RESTING IN BED NAPPING. PT DENIED GENERAL PAIN, CHEST PAIN, PALPITATIONS, N,V,D OR DIZZINESS. PT DID COMPLAIN OF SOB. I WOULD CHECK PT'S O2 SATS. SATS ABOVE 96%. PT ALSO COMPLAINED OF ANXIETY. PT GIVEN PRN ATIVAN. OTHER THEN FOOD AND DRINKS, PT EXPRESSED NO ADDITIONAL NEEDS AT THIS TIME. CALL LIGHT WITHIN REACH.
[2022-06-22 04:51] VITALS: BP 123/77; PULSE 99; TEMP 98.9
[2022-06-22 06:09] LABS: CALCIUM 7.9 mg/dL (8.4-10.2); CREATININE, serum 0.9 mg/dL (0.57-1.11)
[2022-06-22 06:45] LABS: BASO # 0.1 K/mm3 (0.0-0.2); BASO % 0.8 % (0.0-2.0); EOS # 0.3 K/mm3 (0.0-0.7); EOS % 2.4 % (0.0-4.0); GRAN # 6.2 K/mm3 (1.4-6.5); HEMATOCRIT 38.1 % (37.0-47.0); HEMOGLOBIN 12.1 g/dl (12.5-16.0); LYMPH # 3.6 K/mm3 (1.2-3.4); LYMPH % 32.5 % (20.0-51.0); MEAN CELL VOLUME 80 fl (80.0-100.0); MEAN CORPUSCULAR HEMOGLOBIN 26 pg (27-31); MEAN CORPUSCULAR HGB CONC 32 g/dl (33.0-37.0); MEAN PLATELET VOLUME 11.4 fl (7.4-10.4); MONO # 0.8 K/mm3 (0.1-0.6); MONO % 7.6 % (1.7-9.3); RED BLOOD COUNT 4.74 M/mm3 (4.10-5.30); REDCELL DISTRIBUTION WIDTH-CV 14.6 % (11.5-14.5)
[2022-06-22 07:22] LABS: PLATELET COUNT 302 K/mm3 (130-400)
[2022-06-22 07:35] VITALS: BP 103/64; PULSE 92; TEMP 98.5
--- NOTE | 2022-06-22 09:38 | NUR ---
PT RESTING IN BED, DROWSY THIS AM. MORNING MEDICATIONS GIVEN. SHIFT ASSESSMENT COMPLETED. PT REPORTS HER BREATHING FEELS BETTER THIS AM AND COUGH HAS IMPROVED. PT CURRENLY ON 0.5L O2 VIA NC. DENIES ANY PAIN OR NEEDS AT THIS TIME. WILL CONTINUE TO MONITOR.
[2022-06-22 11:43] VITALS: BP 96/56; PULSE 74; TEMP 97.6
[2022-06-22 16:22] VITALS: BP 118/77; PULSE 98; TEMP 97.2
[2022-06-22 16:31] LABS: HEMOGLOBIN 11.6 g/dl (12.5-16.0); MEAN CELL VOLUME 80 fl (80.0-100.0); MEAN CORPUSCULAR HEMOGLOBIN 26 pg (27-31); MEAN CORPUSCULAR HGB CONC 32 g/dl (33.0-37.0); MEAN PLATELET VOLUME 11.2 fl (7.4-10.4); PLATELET COUNT 310 K/mm3 (130-400); RED BLOOD COUNT 4.54 M/mm3 (4.10-5.30); REDCELL DISTRIBUTION WIDTH-CV 14.6 % (11.5-14.5)
[2022-06-22 16:32] LABS: HEMATOCRIT 36.5 % (37.0-47.0)
[2022-06-22 16:33] LABS: INR 1.2 (0.8-3.0); PROTHROMBIN TIME 13.2 SECONDS (9.7-12.8)
[2022-06-22 16:35] LABS: PARTIAL THROMBOPLASTIN TIME 27.7 SECONDS (26.0-37.0)
[2022-06-22 16:38] LABS: CALCIUM 8.4 mg/dL (8.4-10.2); CREATININE, serum 1.16 mg/dL (0.57-1.11); POTASSIUM 4.2 mmol/L (3.5-4.5)
[2022-06-22 19:06] VITALS: BP 97/67; PULSE 98; TEMP 97.9
[2022-06-23] VITALS (20 sets, daily range): BP systolic 90–119; BP diastolic 56–78; PULSE 46–109; TEMP 98–98.4
[2022-06-23 07:08] LABS: CALCIUM 8.2 mg/dL (8.4-10.2); CREATININE, serum 1.03 mg/dL (0.57-1.11); MAGNESIUM 1.9 mg/dL (1.6-2.6); POTASSIUM 3.9 mmol/L (3.5-4.5)
[2022-06-23] MEDS ORDERED: TOPROL XL 25MG25 MG PO (07:37)
[2022-06-23] MEDS ORDERED: ASPIRIN E.C. 8181 MG PO (07:38)
--- NOTE | 2022-06-23 10:35 | NUR ---
Initial visit; Patient thanked Coordinator Of Health Services for looking in on her and offering prayer for her recovery from her heart issues. Coordinator Of Health Services will keep Tamera in her prayers and look in on her while she is hospitalized.
--- NOTE | 2022-06-23 13:56 | NUR ---
SEE MERGE FOR ALL MEDICATION ADMMINISTRATION TIMES, INTRA AND POST SEDATION ASSESSMENTS
--- NOTE | 2022-06-23 14:30 | NUR ---
Arrived to room 317 via bed from [facility] [employer]. Post op vitals initiated and WNL. Right radial site without hematoma/drainage. Plan of care discussed for advancing diet and pain control. Verbalizes understanding. Call light in reach. Will monitor.
--- NOTE | 2022-06-23 15:35 | NUR ---
Collections Rep was contacted by MAME Leija with Dr. Rodriguez who advised patient will need a life vest ordered. CARLA faxed facesheet, cardiology notes, EKG, Echocardiogram, and order form to [employer] Rep (ph#[phone]) who confirmed he received it and advised it would be ready tonight vs tomorrow. CARLA updated Hospitalist. SW followed up with patient to review the above update. Patient had questions about the life vest and CARLA advised the physician would answer these questions for her. SW addressed patient's positive UDS for methamphetamines and patient stated she just uses meth every so often. Patient declined drug resources.
--- NOTE | 2022-06-23 16:35 | NUR ---
Cristo Aguilera contacted [employer] and advised patient was approved and they will be here tomorrow morning early to fit patient prior to discharge.
--- NOTE | 2022-06-23 18:00 | NUR ---
Patient remained stable post heart cath. VS remained stable-slight hypotension. Radial band in place. Has tolerated PO-fluid restriction enforced. Denies current needs. Call light in reach. Will monitor.
--- NOTE | 2022-06-23 23:05 | NUR ---
Patient assessed around 191. Denies pain and discomfort. Right radial heart cath site without hematoma and pain. Able to deflat TR band and bandaid placed. Patient has been awake requesting fluids and snacks. Had to remind patiet multiple times about fluid restriction, and went over what counted towards fluids and what didn't. Given PRN Ativan as requested for anxiety. Denies having any other questions, needs, or concerns at this time. In bed with call light within reach.
[2022-06-24 04:34] VITALS: BP 111/56; PULSE 115; TEMP 98.6
--- NOTE | 2022-06-24 05:16 | NUR ---
Patient has been awake most of shift. Has eatten. Wanting more fluids but reminded of fluid restriction and had already reached limit. Voiced understanding. Voices no questions, needs, or concerns at this time. In bed with call light within reach.
[2022-06-24 07:29] VITALS: BP 84/45; PULSE 105; TEMP 97.7
--- NOTE | 2022-06-24 07:38 | NUR ---
YONAS Rossi notified of AM BP 80s/40s. New orders placed and initiated.
--- NOTE | 2022-06-24 09:00 | NUR ---
Assessment complete. A&Ox4. Denies pain, nausea and shortness of breath. VS remain stable-is hypotensive-provider aware. Life Vest has come this AM and applied vest to patient. TELE is reporting ST. Left wrist 20g INT flushes well with no signs of infiltration. Plan of care discussed for this shift to include meds, tele monitoring and calling for questions/concerns. Verbalizes understanding. Call light in reach. Will monitor.
--- NOTE | 2022-06-24 09:37 | NUR ---
The LifeVest was delivered and set up with the patient. The patient is to tentatively discharge back home with her today, 06/24. SW met with the patient and presented and read the IM form outloud to her. The patient verbalized understanding and agreement to discharge today. She signed the form and SW provided her with a copy. No additional needs at this time.
[2022-06-24 11:10] VITALS: BP 97/65; PULSE 108; TEMP 97.3
--- NOTE | 2022-06-24 12:13 | NUR ---
CHF- Reviewed education for chronic heart failure. Reviewed [facility] CHF educational booklet, with emphasis on daily weights, obtaining dry weights, monitoring for edema, shortness of breath, decreased endurance, or feeling full when eating less. Reviewed importance of medication compliance with all prescribed medications and when to call your medical provider (CHF Zones). Patient verbalized understanding. Patient s EF is 10-15% which does qualify for Cardiac Rehab. Referral sent to [facility] with patient s permission. Pt verbalized understanding.
--- NOTE | 2022-06-24 14:40 | NUR ---
Discharge instructions given both verbal and handwritten. Discussed f/u appt, life vest, home medications and s/s of when to return to the ER. Verbalizes understanding. INT DCd to right [id number] intact. Escorted out to [facility] by BEN Benavides in wheelchair with . All belongings taken with patient.
== END 2022-06-24 14:20 | disposition home or self-care (01) | DRG 287 ==
LOC: MEDICAL 10:46
PROVIDERS: Internal Medicine; Internal Medicine Cardiovascular Disease; Nurse Practitioner Family; Physician Assistant; ADMIT Student in an Organized Health Care Education/Training Program
PROC: 4A023N7 Measurement of Cardiac Sampling and Pressure, Left Heart, Percutaneous Approach (ICD-10-PCS; principal; 2022-06-23)
PROC: B2111ZZ Fluoroscopy of Multiple Coronary Arteries using Low Osmolar Contrast (ICD-10-PCS; 2022-06-23)
DX: I50.23 Acute on chronic systolic (congestive) heart failure (principal); I47.2 Ventricular tachycardia; I42.0 Dilated cardiomyopathy; I31.3 Pericardial effusion (noninflammatory); K21.9 Gastro-esophageal reflux disease without esophagitis; G20 Parkinson's disease; F41.9 Anxiety disorder, unspecified; F32.A Depression, unspecified; D64.9 Anemia, unspecified; E03.9 Hypothyroidism, unspecified; K44.9 Diaphragmatic hernia without obstruction or gangrene; I27.20 Pulmonary hypertension, unspecified; I08.1 Rheumatic disorders of both mitral and tricuspid valves; E16.2 Hypoglycemia, unspecified; I95.9 Hypotension, unspecified; R63.4 Abnormal weight loss; R09.81 Nasal congestion; Z79.890 Hormone replacement therapy; Z87.19 Personal history of other diseases of the digestive system; Z90.49 Acquired absence of other specified parts of digestive tract; Z90.710 Acquired absence of both cervix and uterus; Z68.25 Body mass index [BMI] 25.0-25.9, adult
CPT/HCPCS: OP; C1769; G0378; J1200; J1644; J1940; J2250; J2405; J3475

== ENCOUNTER 2022-07-02 16:43 | Emergency (ER) | payer MEDICARE, OTHER ==
[~2022-07-02] VITALS: Ht 160 cm; Wt 63.2 kg
[~2022-07-02 16:43] MED LIST changes: +ASPIRIN E.C. 8181 MG PO; +TOPROL XL 25MG25 MG PO
[2022-07-02 16:54] VITALS: TEMP 97.7
[2022-07-02 17:42] LABS: COLLECTION METHOD CLEAN CATCH
[2022-07-02 17:56] LABS: BASO # 0.1 K/mm3 (0.0-0.2); EOS # 0.3 K/mm3 (0.0-0.7); EOS % 2.3 % (0.0-4.0); GRAN # 8.2 K/mm3 (1.4-6.5); GRAN % 64.8 % (42.2-75.2); HEMOGLOBIN 10.8 g/dl (12.5-16.0); LYMPH # 3.1 K/mm3 (1.2-3.4); LYMPH % 24.4 % (20.0-51.0); MEAN CELL VOLUME 83 fl (80.0-100.0); MEAN CORPUSCULAR HEMOGLOBIN 25 pg (27-31); MEAN CORPUSCULAR HGB CONC 30 g/dl (33.0-37.0); MEAN PLATELET VOLUME 10.8 fl (7.4-10.4); MONO # 0.9 K/mm3 (0.1-0.6); PLATELET COUNT 277 K/mm3 (130-400); RED BLOOD COUNT 4.32 M/mm3 (4.10-5.30); REDCELL DISTRIBUTION WIDTH-CV 14.9 % (11.5-14.5)
[2022-07-02 17:58] LABS: HEMATOCRIT 35.8 % (37.0-47.0)
[2022-07-02 18:00] LABS: PH 5 (5-8); SQUAMOUS EPITHELIAL 0-2 /hpf (0-10); URINE APPEARANCE Clear (CLEAR/HAZY); URINE BACTERIA None Seen /hpf (NONE SEEN); URINE BLOOD Negative (NEGATIVE); URINE COLOR Yellow (YELLOW); URINE GLUCOSE Negative (NEGATIVE); URINE KETONE Negative (NEGATIVE); URINE NITRATE Negative (NEGATIVE); URINE PROTEIN(semi-quant) Negative (NEGATIVE); URINE RBC None Seen /hpf (0-2); URINE UROBILINOGEN Negative (NEGATIVE)
[2022-07-02 18:17] LABS: ALANINE AMINOTRANSFERASE 23 U/L (0-55); ALBUMIN 3.1 gm/dL (3.4-4.8); ALKALINE PHOSPHATASE 101 U/L (40-150); ANION GAP 10 mmol/L (7-16); AST,SGOT 15 U/L (5-34); BILIRUBIN,TOTAL 0.4 mg/dL (0.2-1.2); BLOOD UREA NITROGEN 18 mg/dL (10-20); CALCIUM 8.5 mg/dL (8.4-10.2); CARBON DIOXIDE 21 mmol/L (23-31); CHLORIDE 108 mmol/L (98-107); CREATININE, serum 0.97 mg/dL (0.57-1.11); GLUCOSE 91 mg/dL (70-99); LIPASE 72 U/L (8-78); POTASSIUM 3.8 mmol/L (3.5-4.5); SODIUM 139 mmol/L (136-145); TOTAL PROTEIN 6.5 gm/dL (6.2-8.1)
[2022-07-02 18:23] LABS: TROPONIN-I < 0.010 ng/mL (0.00-0.033)
[2022-07-02 20:58] VITALS: BP 102/70; PULSE 65
== END 2022-07-02 20:58 | disposition home or self-care (01) ==
LOC: COL.ER 16:43
PROVIDERS: Physician Assistant
DX: I50.9 Heart failure, unspecified (principal); I42.0 Dilated cardiomyopathy; Z20.822 Contact with and (suspected) exposure to COVID-19; Z98.61 Coronary angioplasty status
CPT/HCPCS: J1940

== ENCOUNTER 2023-02-17 14:47 | Inpatient (IN) | payer MEDICARE ==
[~2023-02-17] VITALS: Wt 56.5 kg
[~2023-02-17 14:47] MED LIST changes: +ATARAX50 MG PO; +ATIVAN 0.50.5 MG/TAB PO; +CEPHALEXIN500 M1 PO; +LASIX 40MG TABL40 MG PO; +PROAIR HFA0.09 MG/AC IH; +PROZAC 20MG20 MG PO; +PROZAC60 MG PO; +TESSALON P100 MG/CAP PO
[2023-02-17 15:20] LABS: BASO # 0.1 K/mm3 (0.0-0.2); BASO % 0.9 % (0.0-2.0); EOS # 0.1 K/mm3 (0.0-0.7); EOS % 0.4 % (0.0-4.0); GRAN # 8.8 K/mm3 (1.4-6.5); GRAN % 73.7 % (42.2-75.2); HEMATOCRIT 38.3 % (37.0-47.0); HEMOGLOBIN 12.2 g/dl (12.5-16.0); LYMPH # 1.9 K/mm3 (1.2-3.4); LYMPH % 15.4 % (20.0-51.0); MEAN CELL VOLUME 86 fl (80.0-100.0); MEAN CORPUSCULAR HEMOGLOBIN 27 pg (27-31); MEAN CORPUSCULAR HGB CONC 32 g/dl (33.0-37.0); MEAN PLATELET VOLUME 11.6 fl (7.4-10.4); MONO # 1.1 K/mm3 (0.1-0.6); MONO % 9.3 % (1.7-9.3); PLATELET COUNT 271 K/mm3 (130-400); RED BLOOD COUNT 4.47 M/mm3 (4.10-5.30)
[2023-02-17 15:34] LABS: ALBUMIN 3.6 gm/dL (3.4-4.8); BILIRUBIN,TOTAL 0.9 mg/dL (0.2-1.2); CALCIUM 9.2 mg/dL (8.4-10.2); CREATININE, serum 1.17 mg/dL (0.57-1.11); POTASSIUM 4.5 mmol/L (3.5-4.5); TOTAL PROTEIN 6.9 gm/dL (6.2-8.1)
[2023-02-17 15:40] LABS: TROPONIN-I 0.033 ng/mL (0.00-0.033)
[2023-02-17 16:34] LABS: ARTERIAL BLD GAS O2 SATURATION 95.9 % (92-100); ARTERIAL BLD GAS TCO2 CT 21.2; ARTERIAL BLOOD GAS BASE EXCESS -2.3 (-2-2); ARTERIAL BLOOD GAS HCO3 20.3 meq/L (22-26); ARTERIAL BLOOD GAS PCO2 28.7 mmHg (35-45); ARTERIAL BLOOD GAS PO2 74.1 mmHg (80-100); ARTERIAL BLOOD GAS pH 7.47 (7.35-7.45)
[2023-02-17 16:58] LABS: TRICYCLIC ANTIDEPRESS URINE NEGATIVE
[2023-02-17 18:32] VITALS: BP 123/77; PULSE 116; TEMP 98.1
--- NOTE | 2023-02-17 19:27 | NUR ---
Patient up to the medical floor from ER. Confused and drowsy, answers some questions appropriately but will othertimes not answer with a blank look or mumble incoherantly. Bed in lowest position, call light within reach, bed alarm on. Trying to climb out of bed frequently. Fall risk precautions in effect.
[2023-02-17 23:32] VITALS: BP 118/78; PULSE 111; TEMP 98.2
--- NOTE | 2023-02-17 23:39 | NUR ---
PATIENT ADMITTED TO ROOM 355 FROM THE EMERGENCY DEPARTMENT. SHE IS VERY ANXIOUS GETTING OUT OF BED MULTIPLE TIMES AND NOT FOLLOWING COMMANDS. GIVEN ATIVAN TWICE ON THE FLOOR. HAS A DRY COUGH. TACHYCARDIC ON TELE. ICD PRESENT IN LEFT CHEST. BNP- 2990. D DIMER- 342. UA POSITIVE FOR METHAMPHETAMINES, BENZOS, AND AMPHETAMINES. PT/OT. BC PENDING. NEED A SPUTUM CULTURE. LEGIONELLA UA PENDING. EF OF 10%. SHE IS CONFUSED AND DROWSY. YONAS GOLDMAN, NOTIFIED REGARDING PATIENT GETTING OUT BED MULTIPLE TIMES AND NOT FOLLOWING COMMANDS. CT HEAD NEGATIVE. CT CHEST- PALMA PNEUMONIA, SEVERE CARDIOMEGALY. DOMINGO, DAUGHTER, CALLED AND DISCUSSED CARE, HER NUMBER WAS ADDED TO HER ADMISSION INTAKE. BED IN LOWEST POSITION. FALL RISK PROTOCAL. CALL LIGHT IN REACH. BED ALARM ACTIVE.
[2023-02-18 04:08] VITALS: BP 123/86; PULSE 74; TEMP 98.3
[2023-02-18 06:39] LABS: BASO # 0.1 K/mm3 (0.0-0.2); EOS # 0.1 K/mm3 (0.0-0.7); GRAN # 6.6 K/mm3 (1.4-6.5); GRAN % 73.1 % (42.2-75.2); HEMOGLOBIN 11.5 g/dl (12.5-16.0); LYMPH # 1.4 K/mm3 (1.2-3.4); LYMPH % 15.1 % (20.0-51.0); MEAN CELL VOLUME 82 fl (80.0-100.0); MEAN CORPUSCULAR HEMOGLOBIN 27 pg (27-31); MEAN CORPUSCULAR HGB CONC 33 g/dl (33.0-37.0); MEAN PLATELET VOLUME 11.8 fl (7.4-10.4); MONO # 0.9 K/mm3 (0.1-0.6); MONO % 9.5 % (1.7-9.3); PLATELET COUNT 204 K/mm3 (130-400); RED BLOOD COUNT 4.24 M/mm3 (4.10-5.30); REDCELL DISTRIBUTION WIDTH-CV 13.9 % (11.5-14.5)
[2023-02-18 06:42] LABS: HEMATOCRIT 34.9 % (37.0-47.0)
[2023-02-18 07:00] LABS: CALCIUM 8.4 mg/dL (8.4-10.2); CHOLESTEROL RISK RATIO 2.3; CREATININE, serum 1.08 mg/dL (0.57-1.11); POTASSIUM 3.7 mmol/L (3.5-4.5)
[2023-02-18 07:11] VITALS: BP 128/82; PULSE 110; TEMP 98.4
[2023-02-18 11:11] VITALS: BP 118/78; PULSE 99; TEMP 97.8
[2023-02-18 15:15] VITALS: BP 104/76; PULSE 92; TEMP 97.7
--- NOTE | 2023-02-18 15:49 | NUR ---
Holistic Nutritionist met with Patient at bedside to conduct Care Managment Assessment and discuss discharge planning. Patient lives in [place], [place] with her , Ryne P: [phone] and her daughter, 4 grandchildren, and their father. Patient is established with PCP Dr. Domingo and is covered by Medicare AB for insurance. Patient denies the use of O2, DME, and home health services prior to admission. PAtient reports to have AD assigning her daughter as her agent. Patient intends to discharge home when medically cleared. Discharge Plan: Home.
[2023-02-18 19:19] VITALS: BP 91/63; PULSE 92; TEMP 97.7
--- NOTE | 2023-02-18 22:07 | NUR ---
PATIENT ASSESSED AND GIVEN NIGHTLY MEDICATIONS. SHE IS AOX3, MORE ALERT THAN YESTERDAY. GIVEN ATIVAN AROUND 1800. HAS BEEN SLIGHTLY ANXIOUS AND GETTING OUT OF BED STATING THAT SHE NEEDS TO URINATE BUT HAS A CATHETER IN PLACE. SHE WAS EDUCATED ABOUT THE CATHETER MULTIPLE TIMES. DOMINGO, DAUGHTER, CALLED AND UPDATED ABOUT PATIENT CONDITION. CONTINUES ON DOXY IV. LEFT FOREARM IV DRESSING REFINFORCED. FALL RISK PROTOCAL BEING FOLLOWED, YELLOW GOWN, YELLOW SOCKS, FALL RISK BRACELET. BED IN LOWEST POSITION. CALL [facility] IN REACH. BED ALARM ACTIVATED.
[2023-02-19] VITALS (7 sets, daily range): BP systolic 79–97; BP diastolic 45–60; PULSE 86–99; TEMP 97.5–98.4
--- NOTE | 2023-02-19 05:18 | NUR ---
PATIENT ANXIOUS AND GETTING UP MULTIPLE TIMES. GIVEN ATIVAN 1X. SHE IS WANTING THE ECHAVARRIA TAKEN OUT BECAUSE IT STINGS, THIS NURSE ASSESSED THE CATHETER ADVANCING IT AND PULLING IT BACK UNTO THE BALLOON TOUCHED THE BLADDER WALL. SHES URINATING WELL. THERE ARE NO KINKS IN THE TUBING OR INDEPENDENT LOOPS. THIS NURSE TALKED TO SULLY JAUREGUI, WHO STATED THAT WE NEED TO KEEP THE ECHAVARRIA IN PLACE UNTIL THE DOCTOR ADDRESSES IT. THIS WAS EXPLAINED TO THE PATIENT. BED IN LOWEST POSITION. CALL LIGHT IN REACH. BED ALARM ACTIVATED.
[2023-02-19 07:26] LABS: BASO # 0.1 K/mm3 (0.0-0.2); BASO % 0.4 % (0.0-2.0); EOS # 0.1 K/mm3 (0.0-0.7); EOS % 0.6 % (0.0-4.0); GRAN # 14.1 K/mm3 (1.4-6.5); GRAN % 88.2 % (42.2-75.2); HEMOGLOBIN 13.1 g/dl (12.5-16.0); LYMPH # 0.8 K/mm3 (1.2-3.4); LYMPH % 4.9 % (20.0-51.0); MEAN CELL VOLUME 82 fl (80.0-100.0); MEAN CORPUSCULAR HEMOGLOBIN 27 pg (27-31); MEAN CORPUSCULAR HGB CONC 33 g/dl (33.0-37.0); MEAN PLATELET VOLUME 12.9 fl (7.4-10.4); MONO # 0.9 K/mm3 (0.1-0.6); MONO % 5.5 % (1.7-9.3); PLATELET COUNT 267 K/mm3 (130-400); RED BLOOD COUNT 4.86 M/mm3 (4.10-5.30); REDCELL DISTRIBUTION WIDTH-CV 13.7 % (11.5-14.5)
[2023-02-19 07:36] LABS: CALCIUM 8.2 mg/dL (8.4-10.2); CREATININE, serum 1.3 mg/dL (0.57-1.11); POTASSIUM 3.6 mmol/L (3.5-4.5)
--- NOTE | 2023-02-19 13:21 | NUR ---
PT STARTED ON MILRINON DRIP R/T LOW BPS; STARTED BACK ON LASIX IV FOR DIURESIS; IV ANTIBIOTICS CHANGED
--- NOTE | 2023-02-19 23:44 | NUR ---
Patient assessed around 1944. Denies having pain and discomfort. Drowsy, awakens easily, but does go back to sleep. Continues on Milrinone drip per orders. Given Lasix per orders, and receives IV ABX per orders. Voices no questions, needs, or concerns at this time. In bed with call light within reach. High fall risk precautions in place. Bed alarm on.
[2023-02-20] VITALS (8 sets, daily range): BP systolic 101–118; BP diastolic 45–98; PULSE 56–108; TEMP 97.8–100
--- NOTE | 2023-02-20 05:42 | NUR ---
Patient continues on Milrinone drip and ABX per orders. Denies pain and discomfort. Voices no questions, needs, or concerns at this time. In bed with call light within reach. Bed alarm on.
[2023-02-20 06:41] LABS: BASO # 0.1 K/mm3 (0.0-0.2); BASO % 0.7 % (0.0-2.0); EOS % 0.3 % (0.0-4.0); GRAN # 5.4 K/mm3 (1.4-6.5); GRAN % 70.2 % (42.2-75.2); HEMATOCRIT 40.2 % (37.0-47.0); HEMOGLOBIN 13.2 g/dl (12.5-16.0); LYMPH # 1.4 K/mm3 (1.2-3.4); LYMPH % 17.6 % (20.0-51.0); MEAN CELL VOLUME 81 fl (80.0-100.0); MEAN CORPUSCULAR HEMOGLOBIN 27 pg (27-31); MEAN CORPUSCULAR HGB CONC 33 g/dl (33.0-37.0); MEAN PLATELET VOLUME 12.1 fl (7.4-10.4); MONO # 0.8 K/mm3 (0.1-0.6); MONO % 10.9 % (1.7-9.3); PLATELET COUNT 229 K/mm3 (130-400); RED BLOOD COUNT 4.96 M/mm3 (4.10-5.30); REDCELL DISTRIBUTION WIDTH-CV 13.7 % (11.5-14.5)
[2023-02-20 06:59] LABS: CALCIUM 8.1 mg/dL (8.4-10.2); CREATININE, serum 1.48 mg/dL (0.57-1.11)
--- NOTE | 2023-02-20 07:10 | NUR ---
PT TOOK MAYBE HALF OF TX, CLAIMED SHE COULDN'T BREATHE AND REMOVED MASK.
--- NOTE | 2023-02-20 08:18 | NUR ---
Pt asleep and laying in bed. Morning medications administered per eMAR. Shift assessment completed. Pt had 100.0T this morning, recheck was 99.0T at this time. Telemetry remains on, ST. Milrinone infusing @1mL/hr and zosyn infusing @25mL/hr in L forearm. Alberts catheter remains in place with clear, pale yellow output. No request at this time. Call light within reach. Fall precautions in place.
[2023-02-21 03:24] VITALS: BP 105/72; PULSE 94; TEMP 97.8
[2023-02-21 06:54] LABS: BASO # 0.1 K/mm3 (0.0-0.2); BASO % 0.6 % (0.0-2.0); EOS # 0.2 K/mm3 (0.0-0.7); EOS % 1.9 % (0.0-4.0); GRAN # 3.8 K/mm3 (1.4-6.5); GRAN % 49.8 % (42.2-75.2); HEMATOCRIT 41.8 % (37.0-47.0); HEMOGLOBIN 13.1 g/dl (12.5-16.0); LYMPH # 2.4 K/mm3 (1.2-3.4); LYMPH % 30.5 % (20.0-51.0); MEAN CELL VOLUME 84 fl (80.0-100.0); MEAN CORPUSCULAR HEMOGLOBIN 26 pg (27-31); MEAN CORPUSCULAR HGB CONC 31 g/dl (33.0-37.0); MEAN PLATELET VOLUME 12.2 fl (7.4-10.4); MONO # 1.3 K/mm3 (0.1-0.6); MONO % 16.9 % (1.7-9.3); PLATELET COUNT 246 K/mm3 (130-400); RED BLOOD COUNT 4.97 M/mm3 (4.10-5.30); REDCELL DISTRIBUTION WIDTH-CV 13.8 % (11.5-14.5)
[2023-02-21 07:19] LABS: CALCIUM 8.5 mg/dL (8.4-10.2); CREATININE, serum 1.45 mg/dL (0.57-1.11); POTASSIUM 3.1 mmol/L (3.5-4.5)
[2023-02-21 07:37] VITALS: BP 113/65; PULSE 91; TEMP 98
--- NOTE | 2023-02-21 11:15 | NUR ---
Spoke with Dr Rodriguez about Primacor order-per doctors note wanted it DCd this AM. New orders received-Primacor DCd at this time.
[2023-02-21 11:33] VITALS: BP 95/61; PULSE 92; TEMP 98.9
[2023-02-21 15:12] VITALS: BP 118/74; PULSE 86; TEMP 98.3
[2023-02-21 20:00] VITALS: BP 111/72; PULSE 92; TEMP 98.4
[2023-02-21 23:00] VITALS: BP 113/75; PULSE 93; TEMP 97.9
[2023-02-22 05:00] VITALS: BP 99/58; PULSE 85; TEMP 98
[2023-02-22 06:44] LABS: BASO # 0.1 K/mm3 (0.0-0.2); BASO % 0.7 % (0.0-2.0); EOS # 0.4 K/mm3 (0.0-0.7); EOS % 3.7 % (0.0-4.0); GRAN # 5.5 K/mm3 (1.4-6.5); GRAN % 51.5 % (42.2-75.2); HEMATOCRIT 43.7 % (37.0-47.0); HEMOGLOBIN 13.6 g/dl (12.5-16.0); LYMPH # 3.7 K/mm3 (1.2-3.4); LYMPH % 34.5 % (20.0-51.0); MEAN CELL VOLUME 85 fl (80.0-100.0); MEAN CORPUSCULAR HEMOGLOBIN 26 pg (27-31); MEAN CORPUSCULAR HGB CONC 31 g/dl (33.0-37.0); MEAN PLATELET VOLUME 11.9 fl (7.4-10.4); MONO % 9.2 % (1.7-9.3); PLATELET COUNT 252 K/mm3 (130-400); RED BLOOD COUNT 5.16 M/mm3 (4.10-5.30); REDCELL DISTRIBUTION WIDTH-CV 13.9 % (11.5-14.5)
[2023-02-22 06:56] LABS: CALCIUM 8.5 mg/dL (8.4-10.2); CREATININE, serum 1.27 mg/dL (0.57-1.11); POTASSIUM 3.7 mmol/L (3.5-4.5)
[2023-02-22 08:17] VITALS: BP 103/63; PULSE 88; TEMP 97.7
[2023-02-22 10:38] VITALS: BP 124/75
--- NOTE | 2023-02-22 11:39 | NUR ---
Warehouse Consultant rounds: An RN and PROP DRAWER were donning PPE to enter Patient's room to change the bedding. No Warehouse Consultant visit completed.
[2023-02-22 12:05] VITALS: BP 125/81; PULSE 95; TEMP 97.8
[2023-02-22 16:14] VITALS: BP 101/73; PULSE 80; TEMP 97.5
--- NOTE | 2023-02-22 18:00 | NUR ---
Patient had an uneventful day. Slept off and on this shift. Family visited. Denied pain/nausea/shortness of breath. VS remained stable. Denies current needs. Call light in reach. Will monitor.
[2023-02-22 20:25] VITALS: BP 103/68; PULSE 78; TEMP 98.1
[2023-02-23] VITALS: BP 96/67; PULSE 81; TEMP 98.3
[2023-02-23 04:20] VITALS: BP 99/57; PULSE 74; TEMP 98.6
[2023-02-23 06:59] LABS: HEMOGLOBIN 13.5 g/dl (12.5-16.0); MEAN CELL VOLUME 85 fl (80.0-100.0); MEAN CORPUSCULAR HEMOGLOBIN 27 pg (27-31); MEAN CORPUSCULAR HGB CONC 31 g/dl (33.0-37.0); MEAN PLATELET VOLUME 12.5 fl (7.4-10.4); PLATELET COUNT 285 K/mm3 (130-400); RED BLOOD COUNT 5.07 M/mm3 (4.10-5.30); REDCELL DISTRIBUTION WIDTH-CV 13.9 % (11.5-14.5)
[2023-02-23 07:20] LABS: CALCIUM 8.5 mg/dL (8.4-10.2); CREATININE, serum 1.25 mg/dL (0.57-1.11)
[2023-02-23 08:01] LABS: BAND 3 % (0-10); EOSINOPHIL 3 % (0-4); LYMPHOCYTE 37 % (20.0-51.0); NEUTROPHILS 52 % (42.0-75.2); PLATELET ESTIMATE NORMAL (NORMAL)
[2023-02-23 08:19] VITALS: BP 103/59; PULSE 71; TEMP 97.8
--- NOTE | 2023-02-23 09:15 | NUR ---
Pt is awake and laying in bed. Morning medications administered per eMAR. Shift assessment completed. Telemetry remains on. INT in L forearm patent, no edema or redness, wrapped in coban. Alberts catheter remains in place with yellow output. No request at this time. Call light within reach. Fall precautions in place. Contact precautions remain in place.
[2023-02-23] MEDS ORDERED: CORDARONE200 MG/TAB PO (10:38)
--- NOTE | 2023-02-23 11:24 | NUR ---
Alberts catheter discontinued at this time. Obtained 8cc from balloon; intact. Pt tolerated removal well as she did not c/o any pain or discomfort. Pericare provided. Call light within reach. Fall precautions in place.
[2023-02-23 11:34] VITALS: BP 97/72; PULSE 90; TEMP 98.7
--- NOTE | 2023-02-23 13:19 | NUR ---
Per Assessment Nurse met with patient to review discharge plan. SW discussed Home Health, however patient reported she is not home bound and has a "full house" of people. SW reviewed IM form with patient who verbalized understanding. Patient is in contact isolation so SW obtained patient's permission to sign on her behalf. SW placed form in chart and provided copy to patient. Discharge Plan: Home
--- NOTE | 2023-02-23 13:53 | NUR ---
Pt discharge instructions given at this time. All questions answered. INT in L forearm discontinued with catheter tip intact. Pt waiting for spouse to arrive.
--- NOTE | 2023-02-23 14:18 | NUR ---
Pt escorted out of facility via wheelchair by BEN Benavides.
== END 2023-02-23 14:15 | disposition home or self-care (01) | DRG 871 ==
LOC: COL.ER 14:47 → MEDICAL 17:24
PROVIDERS: Physician Assistant; Student in an Organized Health Care Education/Training Program; ADMIT Internal Medicine
DX: A41.9 Sepsis, unspecified organism (principal); I50.33 Acute on chronic diastolic (congestive) heart failure; J18.9 Pneumonia, unspecified organism; J96.01 Acute respiratory failure with hypoxia; I47.20 Ventricular tachycardia, unspecified; I11.0 Hypertensive heart disease with heart failure; K21.9 Gastro-esophageal reflux disease without esophagitis; G20 Parkinson's disease; F32.A Depression, unspecified; Z79.82 Long term (current) use of aspirin; Z20.822 Contact with and (suspected) exposure to COVID-19; F41.9 Anxiety disorder, unspecified; Z90.710 Acquired absence of both cervix and uterus; F15.90 Other stimulant use, unspecified, uncomplicated; Z95.810 Presence of automatic (implantable) cardiac defibrillator
CPT/HCPCS: C9113; J0696; J1644; J1940; J2060; J2260; J2543; J7040; Q9967

== ENCOUNTER 2023-09-30 09:42 | Inpatient (IN) | payer MEDICARE, MEDICAID ==
[~2023-09-30] VITALS: Ht 160 cm; Wt 80.2 kg
[~2023-09-30 09:42] MED LIST changes: +CORDARONE200 MG/TAB PO
[2023-10-21] VITALS (7 sets, daily range): BP systolic 63–154; BP diastolic 62–78; PULSE 60–84; TEMP 97.6–98.2
[2023-10-21] MEDS ORDERED: ABILIFY5 MG PO (08:50)
[2023-10-21] MEDS ORDERED: CEPHALEXIN500 M1 PO (08:51)
[2023-10-21] MEDS ORDERED: PRILOSEC 20MG20 MG PO (08:52)
[2023-10-21] MEDS ORDERED: TYLENOL 500MG500 MG PO (08:53)
[2023-10-21] MEDS ORDERED: MOTRIN 400400 MG/TAB PO (08:53)
[2023-10-21] MEDS ORDERED: NORCO 325 MG-51 TAB PO (08:53)
--- NOTE | 2023-10-21 09:00 | NUR ---
Patient to room 317 from admissions, ambulated independently to room. with the patient. Patient A&Ox4. VSS. Denies pain and discomfort. Nurse oriented the patient to location, call light and room. No further needs expressed. Patient NPO. Call light within reach
[2023-10-21 09:35] LABS: CALCIUM 8.2 mg/dL (8.4-10.2); CREATININE, serum 0.92 mg/dL (0.57-1.11); MAGNESIUM 2.1 mg/dL (1.6-2.6); POTASSIUM 4.1 mmol/L (3.5-4.5)
--- NOTE | 2023-10-21 13:03 | NUR ---
Visitor Services Representative met with patient to discuss discharge planning. Patient lives in [place] with her , Ryne (ph#[phone]) and sees Dr. Brothers for primary care. Patient has been getting medications from [facility], but wants to change to [facility] [address] as it will save her money on her new medications. Patient does not use any DME and is independent with ADLS. Patient advised Ryne is her DPOA-HC. Patient plans to return home at time of discharge. Patient had questions about previous hospital bills and requested to speak with someone about this. CARLA spoke with [employer] Financial Counselor and requested she meet with patient. Discharge Plan; Home
[2023-10-22] VITALS (17 sets, daily range): BP systolic 107–155; BP diastolic 65–85; PULSE 63–93; TEMP 97.1–98.2
--- NOTE | 2023-10-22 00:15 | NUR ---
Patient assessed around 2044. Alert and oriented, and able to make needs known. Denies having pain and discomfort. Peripheral INT to right wrist. Denies SOB and dyspnea. LS CTA. HRR. Telemetry in place: paced. BSAx4. Voices no questions, needs, or concerns at this time. In bed with call light within reach. Aware of plan for Lexiscan in the morning and that she is NPO after midnight.
[2023-10-22 05:51] LABS: CALCIUM 8.4 mg/dL (8.4-10.2); CREATININE, serum 0.96 mg/dL (0.57-1.11); MAGNESIUM 2.3 mg/dL (1.6-2.6); POTASSIUM 4.5 mmol/L (3.5-4.5)
--- NOTE | 2023-10-22 06:07 | NUR ---
Patient has voiced no questions, needs, or concerns this shift. Has been NPO since midnight for Lexiscan today, except took medication with sips of water. Voices no questions, needs, or concerns at this time. In bed with call light within reach.
--- NOTE | 2023-10-22 08:00 | NUR ---
Patient is alert and oriented. Patient resting in bed and watching television, denies pain and nausea. Informed patient the Lexiscan will be this morning. Patient is independent in her room, with no questions or concerns at this time. Call light placed within reach.
[2023-10-22] MEDS ORDERED: PROTONIX 40MG T40 MG PO (08:17)
--- NOTE | 2023-10-22 12:31 | NUR ---
Assessment completed this morning. Pt had lexiscan this morning and continues to be NPO. Contacted Joanna Flores RN for diet orders but images have not been read. Per Joanna, patient to remain NPO until Dr. Rodriguez reads images and at that time a diet order will be placed. Denies pain or needs at this time.
--- NOTE | 2023-10-22 19:16 | NUR ---
Zofran administered for c/o nausea this evening. Reports relief. Denies pain or needs at this time.
--- NOTE | 2023-10-22 22:58 | NUR ---
Patient assessed around 2100. Given scheduled Tikosyn at that time, and RT notified so they were aware of EKG at 2300. Denies pain. Did request something to help her sleep and given PRN Restoril per orders. Voices no questions, needs, or concerns at this time. In bed with call light within reach.
[2023-10-23 02:58] VITALS: BP 95/64; PULSE 62; TEMP 98.1
[2023-10-23 04:15] VITALS: BP_SYST 95
--- NOTE | 2023-10-23 05:46 | NUR ---
Patient has voiced no questions, needs, or concerns this shift. In bed with call light within reach.
[2023-10-23 06:26] LABS: CALCIUM 8.3 mg/dL (8.4-10.2); CREATININE, serum 1.18 mg/dL (0.57-1.11); POTASSIUM 4.2 mmol/L (3.5-4.5)
[2023-10-23 07:45] VITALS: BP 124/68; PULSE 64; TEMP 97.3
--- NOTE | 2023-10-23 07:45 | NUR ---
Patient is independent in her room, alert and oriented. Patient states "I vomitted early this morning, probably from brushing my teeth, that happens sometimes." No complaints of nausea or pain at this time. Patient is resting, watching television and the call light is within reach.
[2023-10-23 09:01] VITALS: BP_SYST 124
[2023-10-23] MEDS ORDERED: TIKOSYN0.25 MG PO (09:08)
[2023-10-23 10:54] VITALS: BP 137/60; PULSE 65; TEMP 98
--- NOTE | 2023-10-23 11:56 | NUR ---
Assessment completed this am. Patient has denied pain or nausea. EKG completed 2 hours after Tikosyn administered. Spoke with Joanna Flores RN to confirm that patient may discharge prior to 6th dose of Tikosyn that is scheduled this evening. Discharge instructions reviewed with the patient- verbalizes understanding. INT d/c'd. Tele d/c'd. Patient's daughter to be here around 1300 to pick her up.
--- NOTE | 2023-10-23 13:01 | NUR ---
Public Works Technician followed up with Jay[employer] Financial Counselor who came up and met with patient prior to discharge home. SW met with patient who advised she has no further questions or concerns at this time. Discharge Plan: Home
[2023-10-23 14:05] VITALS: BP_SYST 137
--- NOTE | 2023-10-23 15:05 | NUR ---
Pt escorted to private vehicle via w/c and discharged home with daughter. Pt did report some discomfort to IV site. Warm moist heat provided and Tylenol administered po. Instructed the patient to use tylenol and warm moist heat at home if needed. Pt verbalized understanding.
== END 2023-10-23 15:06 | disposition home or self-care (01) | DRG 310 ==
LOC: MEDICAL 10-21 07:13
PROVIDERS: ADMIT Internal Medicine Cardiovascular Disease
DX: I47.20 Ventricular tachycardia, unspecified (principal); Z23 Encounter for immunization
CPT/HCPCS: A9500-JZ; J2405; J2785